=== PATIENT | female | born 1990 | race African-American/Black ===

== ENCOUNTER 2021-05-31 06:36 | Emergency (ER) | payer BC, SELFPAY ==
[2021-05-31 06:38] VITALS: BP 120/69; PULSE 85; RESP 17; TEMP 36.7; O2SAT 98
[2021-05-31 06:49] VITALS: O2SAT 97
--- NOTE | 2021-05-31 07:26 | ECG_ITS ---
Measurements Intervals [place] Rate: 82 P: 24 MD: 145 QRS: 43 QRSD: 88 T: 28 QT: 369 QTc: 433 Interpretive Statements SINUS RHYTHM BORDERLINE T WAVE ABNORMALITY- ANTERIOR LEADS BASELINE ARTIFACT- II, III, AVF, V1, V3-V6 BORDERLINE ECG Electronically Signed On 05-31-2021 14:39:53 [employer] by Lex Vee D.O.
[2021-05-31 07:34] VITALS: BP 111/73; PULSE 81; PULSE 84; RESP 14; O2SAT 98
[2021-05-31 07:45] LABS: Basophils Percent Auto 0.1 % (0.2-1.2); Eosinophils Percent Auto 0.2 % (0-4.4); Hematocrit 40.7 % (37.0-47.0); Hemoglobin 13.7 g/dL (12.0-15.0); Immature Granulocyte Absolute 0.01 K/mm3 (0.00-0.031); Immature Granulocyte Percent A 0.1 % (0-0.5); Lymphocytes Absolute Auto 0.61 K/mm3 (0.9-3.2); Lymphocytes Percent Auto 6.8 % (18.3-44.2); Mean Corpuscular HGB Conc 33.7 g/dl (32-36); Mean Corpuscular Volume 89.1 fl (80-100); Monocytes Absolute Auto 0.6 K/mm3 (0.1-0.6); Monocytes Percent Auto 6.6 % (2.6-8.5); Neutrophils Absolute Auto 7.7 K/mm3 (1.3-6.7); Neutrophils Percent Auto 86.2 % (45.5-73.1); Platelet Count Result 240 k/mm3 (150-375); Red Blood Count 4.57 M/mm3 (4.2-5.4); Red Cell Distribution Width 13.2 % (11.5-14.5)
[2021-05-31] MEDS: ONDANSETRON INJ 4 MG/2 ML VIAL IV PUSH (07:46)
[2021-05-31] MEDS: SODIUM CHLORIDE 0.9% IV 1,000 ML 999 ML IV CONT (07:46)
--- NOTE | 2021-05-31 07:48 | ED.SEIZURE ---
HPI - Seizure General Chief Complaint: Seizure Stated Complaint: ?seizure Time Seen by Provider: 05/31/21 07:02 Source: patient, EMS and RN notes reviewed History of Present Illness HPI Narrative: Patient presents with nausea vomiting diarrhea and abdominal pain. Patient reports symptoms started last night. This morning she passed out and coworkers noted abdominal thrusts and thought maybe she was having a seizure they called EMS and she was brought to the ER for evaluation. Coworkers did not note any additional repetitive movements. Patient reports she has diffuse abdominal pain and crampy/achy no clear aggravating or alleviating factors does not radiate and is constant. She denies any blood or bile or melena. She denies prior history of abdominal surgeries or seizures. She reports both of her daughters had vomiting recently. Patient also reports subjective fevers Related Data Allergies Allergy/AdvReac Type Severity Reaction Status Date / Time No Known Allergies Allergy Verified 05/31/21 07:36 Review of Systems Review of Systems: CONSTITUTIONAL: Reports fevers EYES: Denies visual changes, redness, or discharge. ENT: Denies rhinorrhea, congestion, sore throat, or otalgia. CARDIOVASCULAR: Denies chest pain, palpitations, or edema. RESPIRATORY: Denies cough or dyspnea. GASTROINTESTINAL: Abdominal pain, nausea, vomiting, diarrhea GENITOURINARY: Denies dysuria or hematuria. SKIN: Denies rash or itching. MUSCULOSKELETAL: Denies back pain, joint pain, or myalgia. NEUROLOGIC: Denies headache, numbness, dizziness, or weakness. PSYCHIATRIC: Denies anxiety or depression. All systems reviewed & are unremarkable except as noted in HPI and below PMFSH Past Medical History Medical History (Updated 05/31/21 @ 08:58 by Derick Akers MD) Patient denies significant medical history Social History Social History (Updated 05/31/21 @ 07:51 by Derick Akers MD) Substance use: never Exam Narrative: GENERAL: Well-appearing, well-nourished, and in no acute distress. HEAD: Normocephalic, atraumatic. EYES: PERRLA and EOMI. ENT: Nares clear, no rhinorrhea or epistaxis. Mucous membranes moist. NECK: Supple. No masses. No JVD CHEST: Clear to auscultation. No respiratory distress. No wheezes rales or rhonchi HEART: Regular rate and rhythm. No murmur heard. Normal peripheral pulses. ABDOMEN: Minimal pain with deep palpation in the upper abdomen soft, nondistended, normal active bowel sounds. EXTREMITIES: Normal range of motion. No edema. SKIN: Warm, dry, no rash. NEURO: No focal deficits. Alert and oriented x3. PSYCH: Normal mood and affect. Course Reevaluation(s) Reevaluation #1: Patient ports feeling much improved results and plan reviewed with patient. Patient comfortable outpatient plan. Date: 05/31/21 Time: 08:51 Vital Signs Vital signs: Vital Signs Temperature 36.7 C 05/31/21 06:38 Pulse Rate 85 05/31/21 06:38 Respiratory Rate 17 05/31/21 06:38 Blood Pressure 120/69 05/31/21 06:38 Pulse Oximetry 98 05/31/21 06:38 Temperature 36.7 C 05/31/21 06:38 Pulse Rate 80 05/31/21 10:25 Respiratory Rate 18 05/31/21 10:25 Blood Pressure 111/73 05/31/21 10:25 Pulse Oximetry 100 05/31/21 10:25 MDM - Seizure MDM Narrative Medical decision making narrative: H&P as above, vss, pt looks clinically well, exam with nonacute abdomen, labs clinically unremarkable, additional labs/img considered, symptomatic relief available as needed, on reevaluation pt continues to looks clinically well reports feeling much improved. Suspect given family with similar symptoms suspect viral process such as gastroenteritis with the vomiting and diarrhea patient may have had a vasovagal event, there is low clinical concern for seizure, severe sepsis, severe dehydration, appendicitis, perforation, bowel obstruction. plan to tx/monitor as op w/ pcm f/u findings/plan discussed with pt, pt agree/comfortable with plan, ret
[2021-05-31 07:50] LABS: Add Urine Microscopic? YES; Appearance Urine Cloudy (Clear); Bilirubin Urine Negative (Negative); Blood Urine Negative (Negative); Color Urine Yellow (Yellow); Glucose Urine UA Negative (Negative); Ketones Urine Negative (Negative); Leukocyte Esterase Ur Negative LEU/UL (Negative); Mucus Urine Few /lpf; Nitrate Urine Negative (Negative); Protein Urine 1+ mg/dL (Negative); RBC Urine 0-2 /hpf (0-2); Specific Grav Ur 1.027 (1.001-1.035); Squamous Epithelial Cell Urine Many /hpf (Few); Urobilinogen Urine Negative mg/dL (<2.0)
[2021-05-31 07:55] LABS: Alanine Aminotransferase 17 U/L (4-35); Albumin Level 4.4 g/dL (3.5-5.1); Alkaline Phosphatase 63 U/L (38-126); Anion Gap 7 mmol/L (8-16); Aspartate Amino Transferase 27 U/L (14-36); Bilirubin,Total 0.7 mg/dL (0.2-1.3); Blood Urea Nitrogen 15 mg/dL (7-17); Calcium 8.9 mg/dL (8.4-10.2); Carbon Dioxide 27 mmol/L (22-30); Chloride 105 mmol/L (98-107); Estimated CRCL calculation 110 ml/min; Estimated Glomerular Filt Rate > 60; Glucose 133 mg/dL (65-110); Lipase 39 U/L (23-300); Potassium 3.8 mmol/L (3.4-5.0); Sodium 139 mmol/L (137-145)
[2021-05-31 10:25] VITALS: BP 111/73; PULSE 80; RESP 18; O2SAT 100
== END 2021-05-31 10:27 | disposition home or self-care (01) ==
PROVIDERS: Emergency Provider Emergency Medicine
DX: R11.2 Nausea with vomiting, unspecified (principal); R19.7 Diarrhea, unspecified; R10.9 Unspecified abdominal pain; R55 Syncope and collapse
CPT/HCPCS: 36415; 80053; 81001; 83690; 85025; 87077; 87086; 87088; 87186; 93005; 96361; 96365; 96375; 99284; J0131; J2405; J7030